=== PATIENT | female | born 1975 | race Caucasian/White ===

== ENCOUNTER 2022-11-24 14:34 | Outpatient (REF) | payer MEDICARE, MEDICAID, SELFPAY ==
[2022-11-29 12:52] LABS: Fungus Smear No Fungi Seen
== END 2022-11-24 14:35 | disposition home or self-care (01) ==
LOC: LBN 14:34
PROVIDERS: Visit Provider Obstetrics & Gynecology
DX: B37.31 Acute candidiasis of vulva and vagina (principal); N89.8 Other specified noninflammatory disorders of vagina
CPT/HCPCS: 87102; 87107; 87206; 87075; 87480; 87510; 87660

== ENCOUNTER 2023-03-31 15:11 | Outpatient (REF) | payer MEDICARE, MEDICAID, SELFPAY | END 2023-03-31 15:12 | disposition home or self-care (01) | LOC: LBN 15:11 | PROVIDERS: Visit Provider Obstetrics & Gynecology | DX: N89.8 Other specified noninflammatory disorders of vagina; Z87.42 Personal history of other diseases of the female genital tract | CPT/HCPCS: 87480; 87510; 87660 ==

== ENCOUNTER → 2023-07-17 04:13 | Outpatient (CLI) | payer MEDICARE, MEDICAID, SELFPAY ==
--- NOTE | 2023-07-17 07:30 | DI.US_ITS ---
Exam(s) US PELVIS TRANSVAGINAL EXAM: US PELVIS TRANSVAGINAL CLINICAL HISTORY: anatomy,dysfunctional uterine bleeding,n93.8 TECHNIQUE: Transabdominal and transvaginal imaging was performed using standard protocol. COMPARISON: No exams were available for comparison FINDINGS: UTERUS: Anteverted. 8.1 x 3.3 x 3.7 cm Endometrium: 4 mm Myometrium: Unremarkable. Cervix: Unremarkable. OVARIES: Not visualized. . CUL-DE-SAC: Free fluid: None. IMPRESSION: 1. Normal-appearing uterus with endometrial stripe within normal limits. 2. Ovaries not visualized. DATA REPOSITORY:
== END ==
PROVIDERS: Visit Provider Obstetrics & Gynecology
DX: N93.8 Other specified abnormal uterine and vaginal bleeding (principal)
CPT/HCPCS: 76830; 76856

== ENCOUNTER 2023-08-23 01:37 | Outpatient (CLI) | payer MEDICARE, MEDICAID, SELFPAY ==
[2023-08-23 22:27] LABS: FSH 11.3 mIU/mL (See Note)
== END 2023-08-23 01:38 | disposition home or self-care (01) ==
PROVIDERS: Visit Provider Obstetrics & Gynecology
DX: N93.8 Other specified abnormal uterine and vaginal bleeding (principal)
CPT/HCPCS: 36415; 83001

== ENCOUNTER 2023-10-25 12:28 | Outpatient (REF) | payer MEDICARE, MEDICAID, SELFPAY | END 2023-10-25 12:29 | disposition home or self-care (01) | LOC: LBN 12:28 | PROVIDERS: Visit Provider Obstetrics & Gynecology | DX: R30.0 Dysuria (principal); R82.89 Other abnormal findings on cytological and histological examination of urine | CPT/HCPCS: 87086 ==

== ENCOUNTER 2023-12-04 15:28 | Outpatient (REF) | payer MEDICARE, MEDICAID, SELFPAY | END 2023-12-04 15:29 | disposition home or self-care (01) | LOC: LBN 15:28 | PROVIDERS: Visit Provider Obstetrics & Gynecology | DX: R39.9 Unspecified symptoms and signs involving the genitourinary system (principal) | CPT/HCPCS: 87086 ==

== ENCOUNTER 2024-01-10 14:40 | Outpatient (REF) | payer MEDICARE, MEDICAID, SELFPAY | END 2024-01-10 14:41 | disposition home or self-care (01) | LOC: LBN 14:40 | PROVIDERS: Visit Provider Obstetrics & Gynecology | DX: R30.0 Dysuria (principal); R10.2 Pelvic and perineal pain; R31.9 Hematuria, unspecified | CPT/HCPCS: 87086 ==

== ENCOUNTER 2024-02-16 00:23 | Outpatient (CLI) | payer MEDICARE, MEDICAID, SELFPAY ==
--- NOTE | 2024-02-16 08:03 | DI.US_ITS ---
Exam(s) US RENAL PELVIC TRANSVAGINAL EXAM: US RENAL PELVIC TRANSVAGINAL CLINICAL HISTORY: anatomy,PELVIC PAIN, HEMATURIA,R10.2 TECHNIQUE: Ultrasound of the pelvis was performed both transabdominal and transvaginal. COMPARISON: US US PELVIS TRANSVAGINAL from 07/17/2023 FINDINGS: UTERUS: Nongravid and anteverted Measures 8 cm length x 4 cm AP x 4.5 cm wide. There are no uterine fibroids. Endometrial thickness measures 3.9 mm. No significant fluid seen in the endometrial canal. CERVIX: There are no obvious nabothian cysts. RIGHT OVARY: Measures 2.1 x 1.2 x 0.9 cm No significant cysts nor masses evident in the right ovary. LEFT OVARY: Measures 1.7 x 0.8 x 1.9 cm No significant cysts nor masses evident in the left ovary. CUL-DE-SAC: No free fluid evident. KIDNEYS: Both kidneys exhibit normal size, both measuring 9.9 cm length. There are no masses nor cys ts in the kidneys and corticomedullary differentiation is normal bilaterally. There are no renal ronnie culi are evident. No hydronephrosis. No perinephric fluid. URINARY BLADDER: Prevoid volume was 95 cc and the bladder emptied completely with no remaining volume within the bladder post micturition. Bladder wall thickness is normal. No obvious masses in the bl adder lumen nor intraluminal calculi. No diverticuli in the bladder. Both ureterovesical jets were identified. IMPRESSION: 1. Normal appearing uterus and age-appropriate endometrium. 2. No abnormal ovarian findings. No extraovarian adnexal masses evident. 3. No free fluid evident in the adnexal regions and cul-de-sac. 4. Normal ultrasound appearance of both kidneys and urinary bladder. There is no evidence of urinar y retention. DATA REPOSITORY:
== END 2024-02-16 00:43 ==
PROVIDERS: PCP Nurse Practitioner Family; Visit Provider Obstetrics & Gynecology
DX: R10.2 Pelvic and perineal pain (principal)
CPT/HCPCS: 76770; 76830; 76856

== ENCOUNTER 2024-03-19 01:42 | Outpatient (CLI) | payer MEDICARE, MEDICAID, SELFPAY ==
--- NOTE | 2024-03-19 | DI.US_ITS ---
Exam(s) US THYROID EXAM: US THYROID CLINICAL HISTORY: Goiter-primary, E04.9; eval parathyroid, lymph nodes and palpable lumps. TECHNIQUE: Ultrasound thyroid performed using standard protocol. COMPARISON: US US RENAL PELVIC TRANSVAGINAL from 02/16/2024 FINDINGS: Both thyroid lobes exhibit normal size as does the isthmus RIGHT THYROID LOBE: Measures 1.5 cm AP x 1.6 cm wide x 4.3 cm craniocaudal There are multiple benign colloid cysts measuring up to 4 mm size there are no solid nodules in right lobe. ISTHMUS: Normal thickness. There are no nodules in the isthmus. LEFT THYROID LOBE: Measures 1.3 cm AP x 1.7 wide x 4.0 cm craniocaudal There are a few: Cysts also evident in the left thyroid lobe. However, inferiorly there is also a sm all solid nodule which measures 0.4 x 0.3 cm Characteristics of this small nodule are as follows: Composition: Solid-2 points Echogenicity: Hypoechoic-2 points Shape: Wider than taller in the transverse plane-0 points Margin: Max-pjsqbdx-1 points Echogenic Foci: None-0 points Total points for this nodule: 4 ACR Ti-Rads Category: 4 This nodule can be followed conservatively. LYMPH NODES: There is no significant adenopathy. There are no nodules visible behind the thyroid gland to suggest enlarged parathyroid. IMPRESSION: 1. In addition to multiple small benign colloid cysts in both thyroid lobes there is also a single s mall 4 x 3 mm solid nodule which register is as a TiRads 4 level nodule This can be followed with repeat ultrasound imaging in 1 year. Does not require biopsy as it measure s less than 1.5 cm 2. No significant lymphadenopathy DATA REPOSITORY:
== END 2024-03-19 02:02 ==
LOC: DI 01:42
PROVIDERS: PCP Nurse Practitioner Family; Visit Provider Internal Medicine Endocrinology, Diabetes & Metabolism
DX: E04.9 Nontoxic goiter, unspecified (principal)
CPT/HCPCS: 76536

== ENCOUNTER 2024-03-19 16:22 | Outpatient (CLI) | payer MEDICARE, MEDICAID, SELFPAY ==
[2024-03-19 15:34] LABS: Calculated LDL 122 mg/dL (<100); Cholesterol 222 mg/dL (<200); HDL Cholesterol 63 mg/dL (40-60); TSH 1.42 uIU/mL (0.36-3.74); Triglyceride 185 mg/dL (<150)
== END 2024-03-19 16:23 | disposition home or self-care (01) ==
LOC: LBO 16:27
PROVIDERS: PCP Nurse Practitioner Family; Visit Provider Internal Medicine Endocrinology, Diabetes & Metabolism
DX: E78.5 Hyperlipidemia, unspecified (principal); E07.9 Disorder of thyroid, unspecified
CPT/HCPCS: 36415; 80061; 76536; 84443